=== PATIENT | male | born 1990 | race Caucasian/White ===

== ENCOUNTER 2021-09-19 18:08 | Emergency (ER) | payer SELFPAY ==
[2021-09-19 18:31] VITALS: BP 155/101; PULSE 92; RESP 16; TEMP 36.4; O2SAT 96
--- NOTE | 2021-09-19 18:49 | CRLHL7_ITS ---
For Patients: As a result of the Century Cures Act, medical imaging exams and procedure reports are released immediately into your electronic medical record. You may view this report before your referring provider. If you have questions, please contact your health care provider. INDICATION: Right flank and groin pain TECHNIQUE: CT abdomen and pelvis without contrast. COMPARISON: None FINDINGS: Lower chest: Unremarkable. Liver: Diffusely diminished attenuation, compatible with steatosis, and mildly enlarged. No focal mass. Spleen: Unremarkable. Pancreas: Unremarkable. Gallbladder and bile ducts: Unremarkable. Kidneys: Unremarkable. No kidney or ureteral stones and no hydronephrosis. Adrenal glands: Unremarkable. GI tract: Unremarkable. Appendix is normal. Vascular structures: Unremarkable. Lymph nodes: Unremarkable. Miscellaneous: Unremarkable. No free air or significant free fluid. Pelvic Organs: Unremarkable. Bones: Unremarkable for age. IMPRESSION: Diffusely diminished attenuation of the liver compatible with steatosis, otherwise, unremarkable noncontrast CT of the abdomen and pelvis. No urinary tract stones, hydronephrosis, or other cause for flank pain. Please note that all CT scans at this facility use dose modulation, iterative reconstruction, and/or weight-based dosing when appropriate to reduce radiation dose to as low as reasonably achievable. Dictated by Taran Mccoy MD @ 09/19/2021 8:08:37 PM (Electronically Signed)
--- NOTE | 2021-09-19 18:51 | ED.GENADULT ---
HPI - General Adult General Chief complaint: Groin Pain Stated complaint: PAIN IN GROIN TO RIGHT SIDE Time Seen by Provider: 09/19/21 18:28 History of Present Illness HPI narrative: This 30-year-old male comes in reporting right flank, abdominal, and groin pain that was mild about a week ago but now is much more intense today. He did have some dysuria symptoms also today. Prior to this he has been in good health. He does not report any fevers. He does have some occasional nausea but no vomiting. Related Data Previous Rx's Medication Instructions Recorded methylprednisolone 4 mg tablets in 4 mg PO DAILY #21 ea 09/19/21 a dose pack (Medrol (Thanh)) Allergies Allergy/AdvReac Type Severity Reaction Status Date / Time No Known Drug Allergies Allergy Verified 09/19/21 18:36 Review of Systems Status of ROS: Reports: 10 or more systems reviewed and unremarkable except as noted in History and below Narrative: Constitutional: No fevers, no weight gain or loss. Eyes: No discharge. No vision changes. HENT: No congestion, no sore throat, no ear pain. Cardiovascular: No chest pain, no palpitations. Respiratory: No shortness of breath, no wheezes, no cough. Gastrointestinal: No vomiting, no diarrhea. Right abdominal pain extending into the right groin. Right flank pain. Genitourinary: No dysuria, no hematuria. Musculoskeletal: Normal range of motion. Skin: No rashes, no pruritis. Neurological: No dizziness, weakness, sensory change, speech change. Endo/Heme/Allergies: No bruising or bleeding. No polydipsia. Pysch: no suicidality, no anxiety, no insomnia. All other systems reviewed and are negative. PFSH [facility] Social History Smoking Status: Never smoker Second hand tobacco smoke exposure: No How often do you have a drink containing alcohol: 4 or more times a week AUDIT-C Alcohol total score: 4 Non-prescribed substance use: denies use Exam Narrative: Exam Narrative: Constitutional: Well-developed, well-nourished, no acute distress. HEENT: Normocephalic, atraumatic. Neck: Normal range of motion. Nontender. Supple. Heart: Regular. No murmurs. Normal rate. Intact distal pulses. Lungs: Clear to auscultation. No chest discomfort. No wheezes, rhonchi, or rales. Abdomen: Normal bowel sounds. Diffuse tenderness in the right lower quadrant extending into the right groin. Right flank tenderness. No rebound tenderness. Genitalia: Deferred. Back: No midline tenderness. Normal range of motion. Extremities: Normal range of motion. No injury. Skin: Intact. No rash. Warm. No erythema or pallor. Neurologic: No altered sensation. No weakness. Alert and oriented. Psychiatric: No suicidality. No anxiety or depression. No insomnia. Nursing notes and vitals signs are reviewed. Const: Vital Signs, click to edit/add: Vital Signs - 24 hr 09/19/21 18:31 Temperature 97.6 F Pulse Rate [Pulse Oximeter] 92 Respiratory Rate 16 Blood Pressure [Ri ght Upper Arm] 155/101 H Pulse Oximetry 96 Oxygen Delivery Me thod Room Air Course Vital Signs Vital signs: Initial Vital Signs Temperature 97.6 F 09/19/21 18:31 Temperature Source Temporal Artery Scan 09/19/21 18:31 Pulse Rate 92 09/19/21 18:31 Respiratory Rate 16 09/19/21 18:31 Blood Pressure 155/101 H 09/19/21 18:31 Blood Pressure Mean 119 09/19/21 18:31 Blood Pressure Position Sitting 09/19/21 18:31 Pulse Oximetry 96 09/19/21 18:31 Oxygen Delivery Method 09/19/21 18:31 Vital Signs Temperature 97.6 F 09/19/21 18:31 Pulse Rate 92 09/19/21 18:31 Respiratory Rate 16 09/19/21 18:31 Blood Pressure 155/101 H 09/19/21 18:31 Pulse Oximetry 96 09/19/21 18:31 Oxygen Delivery Method 09/19/21 18:31 Temperature 97.6 F 09/19/21 18:31 Pulse Rate 92 09/19/21 18:31 Respiratory Rate 16 09/19/21 18:31 Blood Pressure 155/101 H 09/19/21 18:31 Pulse Oximetry 96 09/19/21 18:31 Oxygen Delivery Method 09/19/21 18:31 Medical Decision Making MDM Narrative Medical decision making narrative: This man comes in reporting pain in his right groin that radiates up into his abdomen but also down into his right leg. Pain seems to come and go. 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 A CT scan of the abdomen and pelvis was done and shows no sign of kidney stone or other abnormality to explain his pain. Urinalysis also shows no sign of infection or hematuria. More likely this patient's pain is musculoskeletal ordered related to nerve impingement. He received a prescription for some tablets of Toradol, [place], and Medrol Dosepak. He does have a follow-up appointment tomorrow with his primary physician. Lab Data Labs: Lab Results 09/19/21 Range/Units 18:50 Urine Color Yellow (Yellow) Urine Appearance Clear (Clear) Urine pH 6.5 (5.0-8.5) Ur Specific [place] 1.015 (1.000-1.030) Urine Protein Negative (Negative) Urine Glucose (UA) Negative (Negative) Urine Ketones Negative (Negative) Urine Blood Negative (Negative) Urine Nitrite Negative (Negative) Urine Bilirubin Negative (Negative) Urine Urobilinogen 0.2 (0.2-1.0) Ur Leukocyte Esterase Negative (Negative) Urine RBC 0-2 (0-2) Urine WBC 0-2 (0-5) Ur Squamous Epith Cells None (None-Few) Urine Bacteria None (None) Imaging Data CT scan - abdomen: Radiologist's impression: Diffusely diminished attenuation of the liver compatible with steatosis, otherwise, unremarkable noncontrast CT of the abdomen and pelvis. No urinary tract stones, hydronephrosis, or other cause for flank pain. Discharge Plan Discharge Clinical Impression: Right groin pain Condition: Unchanged Additional Instructions: Take medication as prescribed. Follow up with MD as scheduled or return if worsening. Prescriptions: New methylprednisolone [Medrol (Thanh)] 4 mg tablets,dose pack 4 mg PO DAILY Qty: 21 0RF Follow Up/Referrals: Provider,Not a Local [Primary Care Provider] - Stand Alone Forms: [facility] Info Instructions
[2021-09-19] MEDS: KETOROLAC 10 MG TABLET PO (19:20)
[2021-09-19 19:29] LABS: Appearance Urine Clear (Clear); Bilirubin Urine Negative (Negative); Blood Urine Negative (Negative); Color Urine Yellow (Yellow); Glucose Urine Negative (Negative); Ketones Urine Negative (Negative); Leukocyte Esterase Urine Negative (Negative); Nitrite Urine Negative (Negative); Protein Urine Negative (Negative); Specific Gravity Urine 1.015 (1.000-1.030); Urobilinogen Urine 0.2 (0.2-1.0); pH Urine 6.5 (5.0-8.5)
[2021-09-19 19:43] LABS: RBC Urine 0-2 (0-2); WBC Urine 0-2 (0-5)
[2021-09-19 21:00] VITALS: BP 155/101; PULSE 92; RESP 16; TEMP 36.4; O2SAT 96
== END 2021-09-19 21:02 | disposition home or self-care (01) ==
PROVIDERS: Emergency Provider Emergency Medicine Emergency Medical Services
DX: R10.30 Lower abdominal pain, unspecified (principal)
CPT/HCPCS: 74176; 81001; 99284; A9270

== ENCOUNTER 2022-08-22 15:36 | Inpatient (IN) | payer OTHER, SELFPAY ==
[2022-08-22] VITALS (16 sets, daily range): BP systolic 120–141; BP diastolic 78–100; PULSE 86–102; RESP 18; TEMP 36.7–37.5; O2SAT 95–97; BMI 24.1; BMI 28.3
--- NOTE | 2022-08-22 15:54 | ED.ABDPAIN ---
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 He admits that he drinks too much alcohol. Prior to this he was feeling normal. He has nausea, vomiting, and diarrhea. He states that his pain is 10/10 in severity. The pain does radiate through to his back. He reports worsening symptoms when taking anything by mouth. <Danny Crespo MD - Last Filed: 08/22/22 20:44> Related Data Home Medications: Home Medications Medication Instructions Recorded Confirmed No Known Home Medications 08/22/22 08/22/22 <Danny Crespo MD - Last Filed: 08/22/22 20:44> Allergies/Adverse Reactions: Allergies Allergy/AdvReac Type Severity Reaction Status Date / Time No Known Drug Allergies Allergy Verified 08/22/22 15:43 <Danny Crespo MD - Last Filed: 08/22/22 20:44> Review of Systems Status of ROS Reports: 10 or more systems reviewed and unremarkable except as noted in History and below <Danny Crespo MD - Last Filed: 08/22/22 20:44> Narrative Constitutional: No fevers, no weight gain or loss. Eyes: No discharge. No vision changes. HENT: No congestion, no sore throat, no ear pain. Cardiovascular: No chest pain, no palpitations. Respiratory: No shortness of breath, no wheezes, no cough. Gastrointestinal: Abdominal pain with nausea, vomiting, and diarrhea. Genitourinary: No dysuria, no hematuria. Musculoskeletal: Normal range of motion. Skin: No rashes, no pruritis. Neurological: No dizziness, weakness, sensory change, speech change. Endo/Heme/Allergies: No bruising or bleeding. No polydipsia. Pysch: no suicidality, no anxiety, no insomnia. All other systems reviewed and are negative. 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 He does not smoke. Currently drinking about 10 beers a day. History of problems with alcohol with a 6 month period of abstinence in the past. No recreational drug use. What is your current living situation?: I presently have a place to live Problems where you live: no known problems Problems where you live details: N/A In the past 12 months, utilities in danger of being shut off: no In the past 12 mos, have been you worried that your food would run out before you had money to buy more?: never true In the past 12 mos, the food you bought just didn't last and you didn't have money to buy more?: never true Highest level of school completed/degree received: high school graduate Smoking Status: Never smoker Do you use any of these nicotine containing products: None Second hand tobacco smoke exposure: No How often do you have a drink containing alcohol: 4 or more times a week Alcohol type: beer and hard liquor How many standard drinks containing alcohol do you have on a typical day: 3 or 4 How often do you have six or more drinks on one occasion: Less than monthly AUDIT-C Alcohol total score: 6 Non-prescribed substance use: denies use Caffeine: Yes How often does anyone, including family, friends and others, physically hurt you: never How often does anyone, including family, friends and others, insult or talk down to you: never How often does anyone, including family, friends and others, threaten you with harm: never How often does anyone, including family, friends and others, scream or curse at you: never service: No <Danny Crespo MD - Last Filed: 08/22/22 20:44> Exam Narrative: Exam Narrative: Constitutional: Well-developed, well-nourished, no acute distress. HEENT: Normocephalic, atraumatic. Neck: Normal range of motion. Nontender. Supple. Heart: Regular. No murmurs. Normal rate. Intact distal pulses. Lungs: Clear to auscultation. No chest discomfort. No wheezes, rhonchi, or rales. Abdomen: Diffuse tenderness more localized in the upper epigastric region. Genitalia: Deferred. Back: No midline tenderness. Normal range of motion. Extremities: Normal range of motion. No injury. Skin: Intact. No rash. Warm. No erythema or pallor. Neurologic: No altered sensation. No weakness. Alert and oriented. Psychiatric: No suicidality. No anxiety or depression. No insomnia. Nursing notes and vitals signs are reviewed. <Danny Crespo MD - Last Filed: 08/22/22 20:44> Const: Vital Signs, click to edit/add: Vital Signs - 24 hr 08/22/22 15:40 08/22/22 16:39 08/22/22 16:40 Temperature 98.1 F Pulse Rate 86 86 Pulse Rate [Right Pulse Oximeter] 93 Respiratory Rate 18 Blood Pressure 120/78 Blood Pressure [Ri ght Upper Arm] 141/100 H Pulse Oximetry 97 96 95 Oxygen Delivery Me thod Room Air 08/22/22 16:45 08/22/22 16:46 08/22/22 17:00 Temperature Pulse Rate 86 86 87 Pulse Rate [Right Pulse Oximeter] Respiratory Rate Blood Pressure 121/79 Blood Pressure [Ri ght Upper Arm] Pulse Oximetry 96 95 97 Oxygen Delivery Me thod 08/22/22 17:01 08/22/22 17:15 08/22/22 17:16 Temperature Pulse Rate 86 102 H 96 Pulse Rate [Right Pulse Oximeter] Respiratory Rate Blood Pressure 125/82 123/82 Blood Pressure [Ri ght Upper Arm] Pulse Oximetry 97 97 97 Oxygen Delivery Me thod 08/22/22 17:30 08/22/22 17:32 08/22/22 17:57 Temperature 98.9 F Pulse Rate 97 94 Pulse Rate [Right Pulse Oximeter] Respiratory Rate 18 Blood Pressure 125/86 Blood Pressure [Ri ght Upper Arm] Pulse Oximetry 97 97 Oxygen Delivery Me thod <Danny Crespo MD - Last Filed: 08/22/22 20:44> Vital Signs, click to edit/add: Vital Signs - 24 hr 08/22/22 15:40 08/22/22 16:39 08/22/22 16:40 Temperature 98.1 F Pulse Rate 86 86 Pulse Rate [Right Pulse Oximeter] 93 Respiratory Rate 18 Blood Pressure 120/78 Blood Pressure [Ri ght Upper Arm] 141/100 H Pulse Oximetry 97 96 95 Oxygen Delivery Me thod Room Air 08/22/22 16:45 08/22/22 16:46 08/22/22 17:00 Temperature Pulse Rate 86 86 87 Pulse Rate [Right Pulse Oximeter] Respiratory Rate Blood Pressure 121/79 Blood Pressure [Ri ght Upper Arm] Pulse Oximetry 96 95 97 Oxygen Delivery Me thod 08/22/22 17:01 08/22/22 17:15 08/22/22 17:16 Temperature Pulse Rate 86 102 H 96 Pulse Rate [Right Pulse Oximeter] Respiratory Rate Blood Pressure 125/82 123/82 Blood Pressure [Ri ght Upper Arm] Pulse Oximetry 97 97 97 Oxygen Delivery Me thod 08/22/22 17:30 08/22/22 17:32 08/22/22 17:57 Temperature 98.9 F Pulse Rate 97 94 Pulse Rate [Right Pulse Oximeter] Respiratory Rate 18 Blood Pressure 125/86 Blood Pressure [Ri ght Upper Arm] Pulse Oximetry 97 97 Oxygen Delivery Me thod <Fabricio Castro MD - Last Filed: 08/22/22 19:09> Course Vital Signs Vital signs: Initial Vital Signs Temperature 98.1 F 08/22/22 15:40 Temperature Source Temporal Artery Scan 08/22/22 15:40 Pulse Rate 93 08/22/22 15:40 Respiratory Rate 18 08/22/22 15:40 Blood Pressure 141/100 H 08/22/22 15:40 Blood Pressure Mean 113 H 08/22/22 15:40 Blood Pressure Position Sitting 08/22/22 15:40 Pulse Oximetry 97 08/22/22 15:40 Oxygen Delivery Method Room Air 08/22/22 15:40 Vital Signs Temperature 98.1 F 08/22/22 15:40 Pulse Rate 93 08/22/22 15:40 Respiratory Rate 18 08/22/22 15:40 Blood Pressure 141/100 H 08/22/22 15:40 Pulse Oximetry 97 08/22/22 15:40 Oxygen Delivery Method Room Air 08/22/22 15:40 Temperature 98.9 F 08/22/22 19:00 Pulse Rate 87 08/22/22 19:00 Respiratory Rate 18 08/22/22 19:00 Blood Pressure 133/87 08/22/22 19:00 Pulse Oximetry 97 08/22/22 19:00 Oxygen Delivery Method Room Air 08/22/22 19:00 <Danny Crespo MD - Last Filed: 08/22/22 20:44> Initial Vital Signs Temperature 98.1 F 08/22/22 15:40 Temperature Source Temporal Artery Scan 08/22/22 15:40 Pulse Rate 93 08/22/22 15:40 Respiratory Rate 18 08/22/22 15:40 Blood Pressure 141/100 H 08/22/22 15:40 Blood Pressure Mean 113 H 08/22/22 15:40 Blood Pressure Position Sitting 08/22/22 15:40 Pulse Oximetry 97 08/22/22 15:40 Oxygen Delivery Method Room Air 08/22/22 15:40 Vital Signs Temperature 98.1 F 08/22/22 15:40 Pulse Rate 93 08/22/22 15:40 Respiratory Rate 18 08/22/22 15:40 Blood Pressure 141/100 H 08/22/22 15:40 Pulse Oximetry 97 08/22/22 15:40 Oxygen Delivery Method Room Air 08/22/22 15:40 Temperature 98.9 F 08/22/22 19:00 Pulse Rate 87 08/22/22 19:00 Respiratory Rate 18 08/22/22 19:00 Blood Pressure 133/87 08/22/22 19:00 Pulse Oximetry 97 08/22/22 19:00 Oxygen Delivery Method Room Air 08/22/22 19:00 <Fabricio Castro MD - Last Filed: 08/22/22 19:09> MDM - Abdominal Pain Lab Data Labs: Lab Results 08/22/22 Range/Units 14:14 WBC 15.34 H (4.50-11.00) K/uL RBC 5.13 (4.30-5.90) m/uL Hgb 16.2 (13.5-17.5) gm/dL Hct 44.0 (37.0-53.0) % MCV 86 (80-100) fL MCH 32 (26-34) pg MCHC 37 H (32-36) gm/dL RDW Coeff of [place] 13.1 (11.5-15.5) % Plt Count 217 (140-440) K/uL Neut % (Auto) 88.3 H (42.0-72.0) % Lymph % (Auto) 5.7 L (20-44) % Patrick % (Auto) 5.6 (0.0-11.0) % Eos % (Auto) 0.0 (0.0-7.0) % Baso % (Auto) 0.1 (0.0-3.0) % Neut # (Auto) 13.50 H (1.7-7.0) K/uL Lymph # (Auto) 0.90 (0.90-2.90) K/uL Patrick # (Auto) 0.90 (0.00-0.90) K/UL Eos # (Auto) 0.00 (0.00-0.50) K/uL Baso # (Auto) 0.00 (0.00-0.30) K/uL Abs Immat Gran (auto) 0.00 (0.00-0.30) K/uL Imm/Tot Granulo (auto) 0.3 % Sodium 128 L (135-149) mmol/L Potassium 3.3 L (3.6-5.1) mmol/L Chloride 89 L (96-114) mmol/L Carbon Dioxide 22 (20-32) mmol/L BUN 11 (5-24) mg/dL Creatinine 0.5 (0.5-1.5) mg/dL Estimated Creat Clear 182.79 Estimated GFR 138 ml/min Glucose 125 H (60-115) mg/dL Calcium 9.0 (8.4-10.6) mg/dL Total Bilirubin 1.5 (0.1-1.5) mg/dL Direct Bilirubin 0.2 (0.0-0.5) mg/dL AST 73 H (12-35) U/L ALT 52 H (4-50) U/L Alkaline Phosphatase 87 (40-150) U/L Total Protein 8.2 (6.0-8.3) g/dL Albumin 4.5 (3.3-5.0) g/dL Lipase 920 H (23-300) U/L Ethyl Alcohol 0.13 H (0.01-0.03) % <Danny Crespo MD - Last Filed: 08/22/22 20:44> Lab Results 08/22/22 Range/Units 14:14 WBC 15.34 H (4.50-11.00) K/uL RBC 5.13 (4.30-5.90) m/uL Hgb 16.2 (13.5-17.5) gm/dL Hct 44.0 (37.0-53.0) % MCV 86 (80-100) fL MCH 32 (26-34) pg MCHC 37 H (32-36) gm/dL RDW Coeff of [place] 13.1 (11.5-15.5) % Plt Count 217 (140-440) K/uL Neut % (Auto) 88.3 H (42.0-72.0) % Lymph % (Auto) 5.7 L (20-44) % Patrick % (Auto) 5.6 (0.0-11.0) % Eos % (Auto) 0.0 (0.0-7.0) % Baso % (Auto) 0.1 (0.0-3.0) % Neut # (Auto) 13.50 H (1.7-7.0) K/uL Lymph # (Auto) 0.90 (0.90-2.90) K/uL Patrick # (Auto) 0.90 (0.00-0.90) K/UL Eos # (Auto) 0.00 (0.00-0.50) K/uL Baso # (Auto) 0.00 (0.00-0.30) K/uL Abs Immat Gran (auto) 0.00 (0.00-0.30) K/uL Imm/Tot Granulo (auto) 0.3 % Sodium 128 L (135-149) mmol/L Potassium 3.3 L (3.6-5.1) mmol/L Chloride 89 L (96-114) mmol/L Carbon Dioxide 22 (20-32) mmol/L BUN 11 (5-24) mg/dL Creatinine 0.5 (0.5-1.5) mg/dL Estimated Creat Clear 182.79 Estimated GFR 138 ml/min Glucose 125 H (60-115) mg/dL Calcium 9.0 (8.4-10.6) mg/dL Total Bilirubin 1.5 (0.1-1.5) mg/dL Direct Bilirubin 0.2 (0.0-0.5) mg/dL AST 73 H (12-35) U/L ALT 52 H (4-50) U/L Alkaline Phosphatase 87 (40-150) U/L Total Protein 8.2 (6.0-8.3) g/dL Albumin 4.5 (3.3-5.0) g/dL Lipase 920 H (23-300) U/L Ethyl Alcohol 0.13 H (0.01-0.03) % <Fabricio Castro MD - Last Filed: 08/22/22 19:09> Discharge Plan Discharge Patient Disposition: Admitted As Observation <Danny Crespo MD - Last Filed: 08/22/22 20:44>
[2022-08-22] MEDS: 0.9 % SODIUM CHLORIDE 1000 ml 1,000 ML IV (16:20)
[2022-08-22 16:21] LABS: Basophils Percent Auto 0.1 % (0.0-3.0); Hemoglobin* 16.2 gm/dL (13.5-17.5); Immature Granulocytes Pct Auto 0.3 %; Lymphocytes Percent Auto 5.7 % (20-44); Mean Corpuscular HGB Conc 37 gm/dL (32-36); Mean Corpuscular Hemoglobin 32 pg (26-34); Mean Corpuscular Volume 86 fL (80-100); Monocytes Percent Auto 5.6 % (0.0-11.0); Neutrophils Percent Auto 88.3 % (42.0-72.0); Platelet Count* 217 K/uL (140-440); RDW Coefficient of Variation % 13.1 % (11.5-15.5); Red Blood Count 5.13 m/uL (4.30-5.90); White Blood Count* 15.34 K/uL (4.50-11.00)
[2022-08-22] MEDS: HYDROmorphone 0.5 mg/0.5 ml inj IVP (16:22)
[2022-08-22] MEDS: ONDANSETRON 2 MG/ML inj 4 MG IVP (16:22)
[2022-08-22 16:23] LABS: Slide Review Reflex No
--- NOTE | 2022-08-22 16:30 | ED.NURSE ---
upon palpition of pt abdomen he told the that he feels something moving. Whenever he moves, his stomach is tender feels something moving internally.
[2022-08-22 16:34] LABS: Albumin* 4.5 g/dL (3.3-5.0); Chloride* 89 mmol/L (96-114); Sodium* 128 mmol/L (135-149)
[2022-08-22 16:35] LABS: Potassium* 3.3 mmol/L (3.6-5.1)
[2022-08-22 16:37] LABS: Alkaline Phosphatase* 87 U/L (40-150); Aspartate Amino Transferase* 73 U/L (12-35); Bilirubin Direct* 0.2 mg/dL (0.0-0.5); Bilirubin Total* 1.5 mg/dL (0.1-1.5); Blood Urea Nitrogen* 11 mg/dL (5-24); Carbon Dioxide* 22 mmol/L (20-32); Creatinine* 0.5 mg/dL (0.5-1.5); Est. Creatinine Clearance* 182.79; Estimated Glomerular Filt Rate 138 ml/min; Glucose* 125 mg/dL (60-115); Total Protein* 8.2 g/dL (6.0-8.3)
[2022-08-22 16:38] LABS: Alanine Aminotransferase* 52 U/L (4-50); Ethanol* 0.13 % (0.01-0.03); Lipase* 920 U/L (23-300)
--- NOTE | 2022-08-22 16:57 | CRLHL7_ITS ---
For Patients: As a result of the Century Cures Act, medical imaging exams and procedure reports are released immediately into your electronic medical record. You may view this report before your referring provider. If you have questions, please contact your health care provider. CLINICAL HISTORY: Abdominal pain question pancreatitis FINDINGS: Increased echogenicity of the liver. There is a normal appearance of the hepatic IVC and proximal abdominal aorta. There is no evidence of ascites. The gallbladder is of normal size and there is no evidence of intraluminal stones or sludge. The gallbladder wall measures 2 mm in thickness. The common bile duct is of normal size and measures 5 mm in diameter at the level of the lauri hepatis. The visualized portions of the pancreas appears unremarkable. No definite large peripancreatic fluid collections are seen. There is no evidence of a stone or hydronephrosis within the right kidney. The right kidney measures 11.8 cm in length. IMPRESSION: 1. Fatty liver. 2. Visualized portions of the pancreas appears grossly unremarkable. No large peripancreatic fluid collection. Pancreas suboptimally visualized. Dictated by Bernie Aguilar MD @ 08/22/2022 6:43:57 PM (Electronically Signed)
--- NOTE | 2022-08-22 19:10 | P.IMHP_ITS ---
Hospitalist- H&P: HPI History of Present Illness Date Seen: 08/22/22 Chief complaint: Abdominal pain Narrative: Jorge Ramos is a 31 year old male admitted through the emergency department with severe mid abdominal pain since last night. Patient reports that he was doing well until last night when he had onset of severe mid epigastric abdominal pain. He has had no fever. He has had recurrent vomiting which occurs every time he eats. Emesis is nonbloody with a yellow color bitter taste. He has had some nonbloody nonmelanotic diarrhea. He reports no previous episodes of similar symptoms. No previous abdominal surgeries. No previous gastrointestinal or genitourinary problems. Patient reports drinking about 10 beers a day. He acknowledges a problem with drinking too much. He did have a period of 6 months of abstinence but has been heavily drinking since that ended. He tells me today he is pledge Ng for 5 years of abstinence now. He is Liberian-speaking. Communication is through a on line Liberian speech and language assistant Review of Systems Narrative: Prior to the onset of symptoms last night he was feeling well. He has no other health concerns, no past medical history. No previous surgeries. PFSH [facility] Medical History Alcohol induced fatty liver ?K70.0 - Alcoholic fatty liver (ICD-10) Alcohol abuse ?F10.10 - Alcohol abuse, uncomplicated (ICD-10) Social History (Updated 08/22/22 @ 19:15 by Fabricio Castro MD) Narrative: He lives in [place] with his and 4 daughters. 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 He does not smoke. Currently drinking about 10 beers a day. History of problems with alcohol with a 6 month period of abstinence in the past. No recreational drug use. Smoking Status: Never smoker Second hand tobacco smoke exposure: No How often do you have a drink containing alcohol: 4 or more times a week How many standard drinks containing alcohol do you have on a typical day: 10 or more How often do you have six or more drinks on one occasion: Daily or almost daily AUDIT-C Alcohol total score: 12 Non-prescribed substance use: denies use service: No Meds Home Medications and Allergies Home Medications Medication Instructions Recorded Confirmed Type No Known Home Medications 08/22/22 08/22/22 History Allergies Allergy/AdvReac Type Severity Reaction Status Date / Time No Known Drug Allergies Allergy Verified 08/22/22 15:43 Exam Narrative: Exam Narrative: He is alert and appears in mild distress, indicating abdominal pain with his hands. Eyes normal. Sclerae nonicteric. Oropharynx is normal. Neck is supple without mass or adenopathy. Respirations are clear to auscultation. Cardiovascular: S1, S2, regular rate and rhythm. No murmur gallop or rub. Abdomen: Bowel sounds are present. Abdomen is soft with moderate epigastric tenderness and mild diffuse tenderness. External genitalia normal. Extremities are normal with good perfusion. No edema. No rash.. Const: Vital Signs, click to edit/add: Vital Signs - 24 hr 08/22/22 15:40 08/22/22 16:39 08/22/22 16:40 Temperature 98.1 F Pulse Rate 86 86 Pulse Rate [Right Pulse Oximeter] 93 Respiratory Rate 18 Blood Pressure 120/78 Blood Pressure [Ri ght Upper Arm] 141/100 H Pulse Oximetry 97 96 95 Oxygen Delivery Me thod Room Air 08/22/22 16:45 08/22/22 16:46 08/22/22 17:00 Temperature Pulse Rate 86 86 87 Pulse Rate [Right Pulse Oximeter] Respiratory Rate Blood Pressure 121/79 Blood Pressure [Ri ght Upper Arm] Pulse Oximetry 96 95 97 Oxygen Delivery Me thod 08/22/22 17:01 08/22/22 17:15 08/22/22 17:16 Temperature Pulse Rate 86 102 H 96 Pulse Rate [Right Pulse Oximeter] Respiratory Rate Blood Pressure 125/82 123/82 Blood Pressure [Ri ght Upper Arm] Pulse Oximetry 97 97 97 Oxygen Delivery Me thod 08/22/22 17:30 08/22/22 17:32 08/22/22 17:57 Temperature 98.9 F Pulse Rate 97 94 Pulse Rate [Right Pulse Oximeter] Respiratory Rate 18 Blood Pressure 125/86 Blood Pressure [Ri ght Upper Arm] Pulse Oximetry 97 97 Oxygen Delivery Me thod Documenting provider has reviewed patient's vital signs: yes Hospitalist - H&P: Result Labs Labs: Short CBC 08/22/22 Range/Units 14:14 WBC 15.34 H (4.50-11.00) K/uL Hgb 16.2 (13.5-17.5) gm/dL Hct 44.0 (37.0-53.0) % Plt Count 217 (140-440) K/uL BMP 08/22/22 14:14 Sodium 128 L Potassium 3.3 L Chloride 89 L Carbon Dioxide 22 BUN 11 Creatinine 0.5 Glucose 125 H Calcium 9.0 Liver Function 08/22/22 Range/Units 14:14 Total Bilirubin 1.5 (0.1-1.5) mg/dL Direct Bilirubin 0.2 (0.0-0.5) mg/dL AST 73 H (12-35) U/L ALT 52 H (4-50) U/L Alkaline Phosphatase 87 (40-150) U/L Albumin 4.5 (3.3-5.0) g/dL Imaging US - abdomen: Radiologist's impression: CLINICAL HISTORY: Abdominal pain question pancreatitis FINDINGS: Increased echogenicity of the liver. There is a normal appearance of the hepatic IVC and proximal abdominal aorta. There is no evidence of ascites. The gallbladder is of normal size and there is no evidence of intraluminal stones or sludge. The gallbladder wall measures 2 mm in thickness. The common bile duct is of normal size and measures 5 mm in diameter at the level of the lauri hepatis. The visualized portions of the pancreas appears unremarkable. No definite large peripancreatic fluid collections are seen. There is no evidence of a stone or hydronephrosis within the right kidney. The right kidney measures 11.8 cm in length. IMPRESSION: 1. Fatty liver. 2. Visualized portions of the pancreas appears grossly unremarkable. No large peripancreatic fluid collection. Pancreas suboptimally visualized. Assessment and Plan Assessment and plan (1) Pancreatitis, alcoholic, acute: Status: Acute (2) Alcohol induced fatty liver: Status: Acute (3) Alcohol abuse: Status: Acute (4) Hyponatremia: Status: Acute (5) Hypokalemia: Status: Acute Plan Patient is admitted for management of acute pancreatitis as well as complicatio ns including electrolyte abnormalities. Initiate IV fluids. Pain control. Advance diet as tolerated. Pain medication. Correct electrolytes. Monitor for alcohol withdrawal. Total time spent is 60 minutes, 40 minutes in coordination of care and discussing with patient and other providers ongoing management of pancreatitis and importance of abstinence from alcohol.
[2022-08-22] MEDS: MORPHINE 4 MG/ML INJ 2 MG IVP ×3 (19:33→22:14)
[2022-08-22] MEDS: 0.9 % SODIUM CH + KCL 20 mEq/L 1,000 ML 125 ML IV (19:34)
[2022-08-22] MEDS: PHENobarbitaL 32.4 MG TABLET 129.6 MG PO (22:14)
[2022-08-22] MEDS: THIAMINE 100 MG TABLET PO (22:14)
[2022-08-22] MEDS: SODIUM CHLORIDE 0.9 % (FLUSH) 10 ML SYRINGE 5 ML IVF (22:15)
[2022-08-23] VITALS (7 sets, daily range): BP systolic 127–141; BP diastolic 83–89; PULSE 80–95; RESP 14–20; TEMP 36.8–37.2; O2SAT 96–99
[2022-08-23] MEDS: 0.9 % SODIUM CH + KCL 20 mEq/L 1,000 ML 125 ML IV ×3 (03:05→17:20)
[2022-08-23] MEDS: MORPHINE 4 MG/ML INJ 2 MG IVP (03:05)
--- NOTE | 2022-08-23 06:23 | PC.NURSE ---
Shift note: Pt came to the floor with the history of abdominal pain and confirmed of habitual drinking. Rated pain level at 8. Alert and oriented. Pt cannot speak Slovenian and therefore requires an sportspersons. Morphine was given 2x per request. Pain level this morning was 4. No n/v, headache, hallucination, perspiration, or seizures observed. Vital signs recorded within normal limit. Continue to be on clear liquid diet. Ambulate independently to and from BR. Pt was given jello when complained of starving. Pt is feeling better this morning.
[2022-08-23 06:40] LABS: Basophils Absolute Auto 0.01 K/uL (0.00-0.30); Basophils Percent Auto 0.1 % (0.0-3.0); Eosinophils Absolute Auto 0.02 K/uL (0.00-0.50); Eosinophils Percent Auto 0.2 % (0.0-7.0); Hematocrit 39.1 % (37.0-53.0); Hemoglobin* 13.8 gm/dL (13.5-17.5); Immature Granulocytes Abs Auto 0.03 K/uL (0.00-0.30); Immature Granulocytes Pct Auto 0.3 %; Lymphocytes Percent Auto 10.9 % (20-44); Mean Corpuscular HGB Conc 35 gm/dL (32-36); Mean Corpuscular Hemoglobin 32 pg (26-34); Mean Corpuscular Volume 90 fL (80-100); Monocytes Percent Auto 6.2 % (0.0-11.0); Neutrophils Percent Auto 82.3 % (42.0-72.0); Platelet Count* 139 K/uL (140-440); RDW Coefficient of Variation % 13.2 % (11.5-15.5); Red Blood Count 4.37 m/uL (4.30-5.90); White Blood Count* 9.26 K/uL (4.50-11.00)
[2022-08-23 06:48] LABS: Slide Review Reflex No
[2022-08-23 07:01] LABS: Albumin* 3.4 g/dL (3.3-5.0)
[2022-08-23 07:02] LABS: Chloride* 98 mmol/L (96-114); Potassium* 3.8 mmol/L (3.6-5.1); Sodium* 131 mmol/L (135-149)
[2022-08-23 07:04] LABS: Bilirubin Direct* 0.1 mg/dL (0.0-0.5); Bilirubin Total* 2.2 mg/dL (0.1-1.5); Carbon Dioxide* 26 mmol/L (20-32); Creatinine* 0.6 mg/dL (0.5-1.5); Est. Creatinine Clearance* 129.54; Estimated Glomerular Filt Rate 131 ml/min; Total Protein* 6.7 g/dL (6.0-8.3)
[2022-08-23 07:05] LABS: Alanine Aminotransferase* 36 U/L (4-50); Alkaline Phosphatase* 71 U/L (40-150); Aspartate Amino Transferase* 43 U/L (12-35); Blood Urea Nitrogen* 7 mg/dL (5-24); Calcium* 8.4 mg/dL (8.4-10.6); Glucose* 98 mg/dL (60-115); Lipase* 509 U/L (23-300)
[2022-08-23] MEDS: SODIUM CHLORIDE 0.9 % (FLUSH) 10 ML SYRINGE 5 ML IVF ×2 (07:50→15:06)
[2022-08-23] MEDS: MORPHINE 2 MG/ML inj IVP ×2 (07:50→15:05)
[2022-08-23] MEDS: MULTIVITAMIN/MINERALS 1 TABLET 1 TAB PO (09:31)
--- NOTE | 2022-08-23 13:33 | P.IMPN_ITS ---
Progress Note: A&P Assessment and plan (1) Pancreatitis, alcoholic, acute: Problem details: - symptomatically improving - tolerated clear liquids, will advance to full liquids this afternoon - reviewed importance of complete ETOH cessation, patient verbalizes understanding Status: Acute (2) Alcohol induced fatty liver: Status: Acute (3) Alcohol abuse: Status: Acute (4) Hyponatremia: Problem details: - improved Status: Acute (5) Hypokalemia: Problem details: - resolved Status: Acute Plan - per above - SCDs for ppx - if continuing to advance diet well and continues to clinically improve, likely home tomorrow Subjective Date Seen: 08/23/22 Interval history: Jorge is feeling a little better today. He continues to have intermittent epigastric pain, not yet ready to advance diet. No nausea. No vomiting. He has no other concerns for the hospitalist team. Exam Narrative: Exam Narrative: GEN: Alert and oriented, laying comfortably in bed and nontoxic HEENT: EOMIs bilaterally, no scleral icterus CV: RRR, No concerning murmurs R: LCTA bilaterally without concerning wheezing, air movement adequate Ab: Soft, mild tenderness to palpation, normal bowel sounds throughout Ext: wwp, no concerning edema Skin: No concerning skin lesions or rashes on exposed skin Neuro: Nonfocal Psych: Appropriate Const: Vital Signs, click to edit/add: Vital Signs - 24 hr 08/22/22 15:40 08/22/22 16:39 08/22/22 16:40 Temperature 98.1 F Pulse Rate 86 86 Pulse Rate [Pulse Oximeter] Pulse Rate [Right Pulse Oximeter] 93 Respiratory Rate 18 Blood Pressure 120/78 Blood Pressure [Ri ght Arm] Blood Pressure [Ri ght Upper Arm] 141/100 H Pulse Oximetry 97 96 95 Oxygen Delivery Me thod Room Air 08/22/22 16:45 08/22/22 16:46 08/22/22 17:00 Temperature Pulse Rate 86 86 87 Pulse Rate [Pulse Oximeter] Pulse Rate [Right Pulse Oximeter] Respiratory Rate Blood Pressure 121/79 Blood Pressure [Ri ght Arm] Blood Pressure [Ri ght Upper Arm] Pulse Oximetry 96 95 97 Oxygen Delivery Me thod 08/22/22 17:01 08/22/22 17:15 08/22/22 17:16 Temperature Pulse Rate 86 102 H 96 Pulse Rate [Pulse Oximeter] Pulse Rate [Right Pulse Oximeter] Respiratory Rate Blood Pressure 125/82 123/82 Blood Pressure [Ri ght Arm] Blood Pressure [Ri ght Upper Arm] Pulse Oximetry 97 97 97 Oxygen Delivery Me thod 08/22/22 17:30 08/22/22 17:32 08/22/22 17:57 Temperature 98.9 F Pulse Rate 97 94 Pulse Rate [Pulse Oximeter] Pulse Rate [Right Pulse Oximeter] Respiratory Rate 18 Blood Pressure 125/86 Blood Pressure [Ri ght Arm] Blood Pressure [Ri ght Upper Arm] Pulse Oximetry 97 97 Oxygen Delivery Me thod 08/22/22 19:00 08/22/22 20:40 08/22/22 20:52 Temperature 98.9 F 99.5 F 99.5 F Pulse Rate Pulse Rate [Pulse Oximeter] 87 94 94 Pulse Rate [Right Pulse Oximeter] Respiratory Rate 18 18 18 Blood Pressure Blood Pressure [Ri ght Arm] 133/87 127/79 127/79 Blood Pressure [Ri ght Upper Arm] Pulse Oximetry 97 97 97 Oxygen Delivery Ok thod Room Air Room Air Room Air 08/22/22 23:00 08/23/22 03:00 08/23/22 07:38 Temperature 98.6 F 98.6 F 98.6 F Pulse Rate Pulse Rate [Pulse Oximeter] 89 86 95 Pulse Rate [Right Pulse Oximeter] Respiratory Rate 18 18 14 Blood Pressure Blood Pressure [Ri ght Arm] 129/84 141/89 H 128/86 Blood Pressure [Ri ght Upper Arm] Pulse Oximetry 97 99 97 [facility] Room [facility] Room Air 08/23/22 07:38 08/23/22 11:29 08/23/22 11:32 Temperature 98.6 F 98.3 F 98.3 F Pulse Rate Pulse Rate [Pulse Oximeter] 95 86 86 Pulse Rate [Right Pulse Oximeter] Respiratory Rate 14 20 20 Blood Pressure Blood Pressure [Ri ght Arm] 128/86 127/83 127/83 Blood Pressure [Ri ght Upper Arm] Pulse Oximetry 97 96 96 Oxygen Delivery Me thod Room Air Room Air Room Air Labs Labs: Laboratory Results - last 24 hr 08/22/22 08/23/22 14:14 05:50 WBC 15.34 H 9.26 RBC 5.13 4.37 Hgb 16.2 13.8 Hct 44.0 39.1 MCV 86 90 MCH 32 32 MCHC 37 H 35 RDW Coeff of Ok 13.1 13.2 Plt Count 217 139 L Neut % (Auto) 88.3 H 82.3 H Lymph % (Auto) 5.7 L 10.9 L Harper % (Auto) 5.6 6.2 Eos % (Auto) 0.0 0.2 Baso % (Auto) 0.1 0.1 Neut # (Auto) 13.50 H 7.60 H Lymph # (Auto) 0.90 1.00 Harper # (Auto) 0.90 0.60 Eos # (Auto) 0.00 0.02 Baso # (Auto) 0.00 0.01 Abs Immat Gran (auto) 0.00 0.03 Imm/Tot Granulo (auto) 0.3 0.3 Sodium 128 L 131 L Potassium 3.3 L 3.8 Chloride 89 L 98 Carbon Dioxide 22 26 BUN 11 7 Creatinine 0.5 0.6 Estimated Creat Clear 182.79 129.54 Estimated GFR 138 131 Glucose 125 H 98 Calcium 9.0 8.4 Total Bilirubin 1.5 2.2 H Direct Bilirubin 0.2 0.1 AST 73 H 43 H ALT 52 H 36 Alkaline Phosphatase 87 71 Total Protein 8.2 6.7 Albumin 4.5 3.4 Lipase 920 H 509 H Ethyl Alcohol 0.13 H
--- NOTE | 2022-08-23 17:27 | PC.NURSE ---
Pt alert and oriented. Pt rated pain a 5 throughout whole shift. Pain medications given at Pt request for the pain; See EMAR for intervention. Pt describes pain as a soreness after working out at the gym. Still rated at a 5.?VSS. Plastic Press Operator services used. Pt IND in room. Pt on a clear liquid diet. Tolerating well and upgraded to full liquid diet. Pt tolerating full liquid diet. Pt has been passing gas. CWAW score of 0 during assessments on shift.?
[2022-08-23] MEDS: THIAMINE 100 MG TABLET PO (22:18)
[2022-08-24] MEDS: 0.9 % SODIUM CH + KCL 20 mEq/L 1,000 ML 125 ML IV ×2 (00:32→09:02)
[2022-08-24] MEDS: LORazepam 1 MG TABLET PO (01:56)
[2022-08-24 02:50] VITALS: BP 128/76; PULSE 76; RESP 16; TEMP 37.4; O2SAT 97
[2022-08-24 07:00] VITALS: BP 128/86; PULSE 81; RESP 16; TEMP 36.9; O2SAT 97
[2022-08-24 07:16] LABS: Basophils Absolute Auto 0.02 K/uL (0.00-0.30); Basophils Percent Auto 0.3 % (0.0-3.0); Eosinophils Absolute Auto 0.05 K/uL (0.00-0.50); Eosinophils Percent Auto 0.7 % (0.0-7.0); Hematocrit 39.2 % (37.0-53.0); Hemoglobin* 13.8 gm/dL (13.5-17.5); Immature Granulocytes Abs Auto 0.02 K/uL (0.00-0.30); Immature Granulocytes Pct Auto 0.3 %; Lymphocytes Percent Auto 22.2 % (20-44); Mean Corpuscular HGB Conc 35 gm/dL (32-36); Mean Corpuscular Hemoglobin 32 pg (26-34); Mean Corpuscular Volume 91 fL (80-100); Monocytes Percent Auto 7.8 % (0.0-11.0); Neutrophils Absolute Auto 4.65 K/uL (1.7-7.0); Neutrophils Percent Auto 68.7 % (42.0-72.0); Platelet Count* 151 K/uL (140-440); RDW Coefficient of Variation % 13.5 % (11.5-15.5); Red Blood Count 4.31 m/uL (4.30-5.90); White Blood Count* 6.77 K/uL (4.50-11.00)
--- NOTE | 2022-08-24 07:19 | PC.NURSE ---
Pt alert and oriented x3. Afebrile. Pt reports 4/10 pain in abdomen, pain medications offered pt declined. Ipad firer kiln was used with every interaction with pt.?Pt CIWA?s scores were 0-2. Pt reported ?It feels like my limbs jerk, and it is difficult to sleep?. Charge nurse called and updated Urban around 0030, Urban called back around 10 mins later with a one time dose?PO Lorazepam, pt was able to sleep. Pt denies chest pain, SOB, and N/V. Pt is up ad carlos in room. Pt is tolerating a full liquid diet, voiding.
[2022-08-24 07:22] LABS: Slide Review Reflex No
[2022-08-24 07:40] LABS: Albumin* 3.7 g/dL (3.3-5.0); Chloride* 102 mmol/L (96-114); Potassium* 4.1 mmol/L (3.6-5.1); Sodium* 136 mmol/L (135-149)
[2022-08-24 07:42] LABS: Creatinine* 0.6 mg/dL (0.5-1.5); Est. Creatinine Clearance* 129.54; Estimated Glomerular Filt Rate 131 ml/min
[2022-08-24 07:43] LABS: Alanine Aminotransferase* 30 U/L (4-50); Alkaline Phosphatase* 80 U/L (40-150); Aspartate Amino Transferase* 33 U/L (12-35); Bilirubin Direct* 0.2 mg/dL (0.0-0.5); Bilirubin Total* 1.5 mg/dL (0.1-1.5); Blood Urea Nitrogen* 3 mg/dL (5-24); Carbon Dioxide* 26 mmol/L (20-32); Glucose* 93 mg/dL (60-115); Total Protein* 7.2 g/dL (6.0-8.3)
[2022-08-24 07:44] LABS: Calcium* 8.9 mg/dL (8.4-10.6)
[2022-08-24] MEDS: MULTIVITAMIN/MINERALS 1 TABLET 1 TAB PO (09:01)
--- NOTE | 2022-08-24 10:07 | PM.DS1 ---
DS: Providers Provider Date Seen: 08/24/22 Date of admission: 08/22/22 18:54 Primary care physician: Not a Local Provider Admitting Clinician: Fabricio Castro MD Attending Physician on discharge: Diane Castillo MD Date of Discharge: 08/24/22 DS: Diagnosis Discharge Diagnosis (1) Pancreatitis, alcoholic, acute: Status: Acute Problem details: - reviewed importance of complete ETOH cessation upon discharge, patient verbalizes understanding (2) Alcohol induced fatty liver: Status: Acute (3) Alcohol abuse: Status: Acute (4) Hyponatremia: Status: Acute Problem details: - resolved during stay (5) Hypokalemia: Status: Acute Problem details: - resolved during stay DS: Summary Hospital Course Hospital Course: Jorge is a 31-year-old male with a history of alcohol abuse who presented the hospital with acute pancreatitis. Admission imaging revealed fatty liver disease, labs exhibited elevated lipase, AST, and bilirubin, as well as hypokalemia and hyponatremia. These all resolved during stay. He also subjectively improved and was able to advance diet without pain or nausea on hospital day 2, requesting discharge home. He has no other known comorbidities, lives with and children locally. We discussed the importance of ETOH cessation upon discharge, in addition to establishing a PCP locally. Patient verbalized understanding. Status at Discharge Functional status at discharge: independent ambulation Overall status at discharge: patient is progressing back to baseline Time Spent with Patient Time attestation: Total time spent providing and/or coordinating discharge services: Time spent: Less than 30 minutes Exam Narrative: Exam Narrative: GEN: Alert and oriented, nontoxic HEENT: EOMIs bilaterally, no scleral icterus CV: RRR, No concerning murmurs, rubs, or gallops R: LCTA bilaterally Ab: soft, nondistended, no ttp Ext: wwp, no concerning edema Skin: No concerning skin lesions or rashes on exposed skin Neuro: Nonfocal Psych: Appropriate Const: Vital Signs, click to edit/add: Vital Signs - 24 hr 08/23/22 11:29 08/23/22 11:32 08/23/22 14:45 Temperature 98.3 F 98.3 F 98.4 F Pulse Rate [Pulse Oximeter] 86 86 94 Respiratory Rate 20 20 18 Blood Pressure [Ri ght Arm] 127/83 127/83 134/87 Pulse Oximetry 96 96 97 Oxygen Delivery Me thod Room Air Room Air 08/23/22 14:45 08/23/22 19:35 08/23/22 22:30 Temperature 98.4 F 99.0 F 98.5 F Pulse Rate [Pulse Oximeter] 94 86 80 Respiratory Rate 18 18 16 Blood Pressure [Ri ght Arm] 134/87 128/84 130/86 Pulse Oximetry 97 98 97 Oxygen Delivery Me thod Room Air Room Air Room Air 08/23/22 22:30 08/24/22 02:50 08/24/22 07:00 Temperature 99.3 F 98.4 F Pulse Rate [Pulse Oximeter] 86 76 81 Respiratory Rate 16 16 16 Blood Pressure [Ri ght Arm] 128/76 128/86 Pulse Oximetry 97 97 Oxygen Delivery Me thod Room Air Room Air 08/24/22 07:00 Temperature Pulse Rate [Pulse Oximeter] 81 Respiratory Rate 16 Blood Pressure [Ri ght Arm] Pulse Oximetry Oxygen Delivery Me thod DS: Data Data Completed and Pending Labs on day of discharge: Labs from last 24 hours 08/24/22 06:09 WBC 6.77 RBC 4.31 Hgb 13.8 Hct 39.2 MCV 91 MCH 32 MCHC 35 RDW Coeff of Ok 13.5 Plt Count 151 Neut % (Auto) 68.7 Lymph % (Auto) 22.2 [place] % (Auto) 7.8 Eos % (Auto) 0.7 Baso % (Auto) 0.3 Neut # (Auto) 4.65 Lymph # (Auto) 1.50 [place] # (Auto) 0.50 Eos # (Auto) 0.05 Baso # (Auto) 0.02 Abs Immat Gran (auto) 0.02 Imm/Tot Granulo (auto) 0.3 Sodium 136 Potassium 4.1 Chloride 102 Carbon Dioxide 26 BUN 3 L Creatinine 0.6 Estimated Creat Clear 129.54 Estimated GFR 131 Glucose 93 Calcium 8.9 Total Bilirubin 1.5 Direct Bilirubin 0.2 AST 33 ALT 30 Alkaline Phosphatase 80 Total Protein 7.2 Albumin 3.7 Discharge Plan Discharge Disposition: Home, Self-Care Date of Admission: 08/22/22 18:54 Attending Provider on Discharge: Diane Castillo Primary Care Provider: Provider,Not a Local Condition: Improved Anticipated Discharge Date/Time: 08/24/22 10:03 Discharge Medications: No Action No Known Home Medications Discharge Orders: Discharge Order (Routine); Ordered 08/24/22 Ordered By: Diane Castillo Patient Education: Pancreatitis (DC), Abuse of Alcohol (DC) Additional Instructions: Your pancreas was very inflamed from alcohol use. We recommend NO MORE ALCOHOL to prevent this from happening again. You also have fatty liver disease, and it is important to see a Primary Care Provider regularly to check on this. [facility] is a great clinic for followup, their phone number is [phone] Hassan p?ncreas estaba muy inflamado por el consumo de alcohol. Recomendamos NO M?S ALCOHOL para evitar que esto vuelva a suceder. Tambi?n tiene enfermedad del h?gado graso, y es importante michele a un proveedor de atenci?n primaria regularmente para verificar esto. [facility] es natanael gran cl?tor para el seguimiento, hassan n?yonatan de tel?fono es [phone] Activity Level: Activity as Tolerated Diet Detail: Melchor advance as tolerated Follow Up Appointments: Provider,Not a Local [Primary Care Provider] - Forms: [employer] Info Instructions
--- NOTE | 2022-08-24 11:10 | PC.NURSE ---
Nursing Care Hours: [id number] Pt this shift calm and cooperative, alert and oriented. No c/o pain, tenderness after regular meal. No N/V. BM x1 per pt report. IV patent. VSS. LS clear. DC instructions provided with communications maintainer. Discussed finding social support to help quit drinking. Pt states he made a promise to his scientology that he would have no more alcohol but fell. Said he will remake that promise to not drink for five years. Also discussed using non alcoholic beer in social settings if the temptation is too high and that working with a primary care provider to discuss medication treatment for cravings if they arise. Discussed starting with bland small meals throughout the day and slowly increase diet as tolerated. IV removed, VSS, pt ambulated out to SO vehicle.
[2022-08-24 11:16] VITALS: BP 123/84; PULSE 94; TEMP 37
== END 2022-08-24 10:50 | disposition home or self-care (01) | DRG 439 ==
LOC: ED 16:16 → MEDSURG 18:55
PROVIDERS: Family Medicine; Admitting Provider Family Medicine; Emergency Provider Emergency Medicine Emergency Medical Services; Visit Provider Family Medicine
DX: K85.20 Alcohol induced acute pancreatitis without necrosis or infection (principal); E87.1 Hypo-osmolality and hyponatremia; K70.0 Alcoholic fatty liver; E87.6 Hypokalemia; F10.10 Alcohol abuse, uncomplicated
CPT/HCPCS: 36415; 76705; 80048; 80076; 82077; 83690; 85025; 99284; T1013; A9153; A9270; J1170; J2270; J2405; J7030

== ENCOUNTER 2025-01-29 21:44 | Emergency (ER) | payer OTHER, SELFPAY ==
--- OUTSIDE RECORDS SUMMARY | 2025-01-29 21:46 | XMS_ITS | Clinical Summary ---
Author Organization [facility] Address [address] [place] [id number] Care Team Providers Care Oil Boiler Name Role Phone Pcp, No Primary Care Provider Unavailabl e Allergies No known active allergies Medications No known medications Active Problems No known active problems Social History Tobacco UseTypesPacks/DayYears UsedDateSmoking Tobacco: NeverSmokeless Tobacco: Never Tobacco Cessation:Counseling Given: Yes Alcohol UseStandard Drinks/WeekCommentsNo0 (1 standard drink = 0.6 oz pure alcohol)Sex and Gender InformationValueDate RecordedSex Assigned at BirthNot on fileLegal ZweIhuy5002/24/2012 7:43 AM CSTGender IdentityNot on fileSexual OrientationNot on file Last Filed Vital Signs Vital SignReadingTime TakenCommentsBlood Fdesxunz605/7305/10/2016 4:19 PM CDT Szxhm082405/10/2016 4:19 PM WZDKaortdghjvp88.9 ??C (98.5 ??F)05/10/2016 4:19 PM CDTRespiratory Rate--Oxygen Kngbhrmuma78%05/10/2016 4:19 PM CDTInhaled Oxygen Concentration--Wqcurg52.1 kg (139 lb 1.6 oz)05/10/2016 4:19 PM CDNVllkcn829 cm (5' 6.14)05/10/2016 4:19 PM CDTBody Mass Index22.36005/10/2016 4:19 PM CDT Plan of Treatment Health MaintenanceDue DateLast DoneCommentsTetanus qmpgkak8712/03/1999Depression screening for age 12+2000HIV for age 15-6512/03/2003Hepatitis C screening for age 18-7912/02/2006Hepatitis B series for 19+ (1 of 3 - 19+ 3-dose series) 12/03/2007HPV series for age 9-45 (1 - 3-dose SCDM series)12/03/2015BMI (ht and wt on same day) for age 18+Lipids for age 35-441 COVID-19 vaccine series (1 - 2024- season)2024Influenza Vaccine (#1) 2024Pneumococcal series for age 6-49Aged OutNo longer eligible based on patient's age to complete this topic Insurance Care Teams Team MemberRelationshipSpecialtyStart DateEnd Date Pcp, No PCP - General11/08/13
[2025-01-29 22:18] VITALS: BP 154/117; PULSE 113; RESP 18; TEMP 36.4; O2SAT 98
[2025-01-30 00:29] LABS: Hematocrit* 51.3 % (37.0-53.0); Hemoglobin* 18.9 gm/dL (13.5-17.5); Immature Granulocytes Abs Auto 0.03 K/uL (0.00-0.30); Immature Granulocytes Pct Auto 0.3 %; Mean Corpuscular HGB Conc 37 gm/dL (32-36); Mean Corpuscular Hemoglobin 33 pg (26-34); Mean Corpuscular Volume 91 fL (80-100); RDW Coefficient of Variation % 11.6 % (11.5-15.5); Red Blood Count* 5.67 m/uL (4.30-5.90); White Blood Count* 10.80 K/uL (4.50-11.00)
[2025-01-30 00:31] LABS: Lactate* 0.8 mmol/L (0.5-1.9)
[2025-01-30 00:36] LABS: Lymphocytes Absolute Auto 1.80 K/uL (0.90-2.90); Slide Review Reflex No
--- NOTE | 2025-01-30 00:36 | ED_ITS ---
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 34-year-old male with heavy alcohol use every weekend and prior history of pancreatitis 3 years ago presents to the emergency department with vomiting for the past 5 hours, persistent, unable to hold down any food. Heavy beer drinking last night. No fever, no trauma or injury. No hematemesis or bloody stools. Does note some mild periumbilical area pain, does not radiate to the back. No dysuria, no chest or respiratory symptoms. Did not try any interventions prior to coming to ED. he is hoping this is not pancreatitis again. He has been attempting to drink some Pedialyte but cannot hold this down. No prior abdominal surgeries. No right upper quadrant pain. Past medical history notable for alcohol abuse and prior diagnosis of alcohol- induced fatty liver. No history of DTs. No long-term medications, no allergies. ROS is notable for the GI symptoms as above only, otherwise denies times 12 systems. Related Data Previous Rx's ?Medication ?Instructions ?Recorded ondansetron 4 mg disintegrating 4 mg PO Q6H PRN nausea and 01/30/25 tablet vomiting #10 tabs Allergies Allergy/AdvReac Type Severity Reaction Status Date / Time No Known Drug Allergies Allergy Verified 01/29/25 22:35 PFSH PFSH Medical History Lipoma ?D17.9 - Benign lipomatous neoplasm, unspecified (ICD-10) Normal cardiac stress test (03/16/19) History of cocaine abuse ?F14.11 - Cocaine abuse, in remission (ICD-10) History of acute pancreatitis (08/26/22) ?Z87.19 - Personal history of other diseases of the digestive system (ICD-10) Family History Mother Stroke, Onset Age: 20 Maternal Grandmother Myocardial infarction, Onset Age: 60 Diabetes Social History Narrative: He lives in [place] with his and 4 daughters. 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 He does not smoke. Currently drinking about 10 beers a day. History of problems with alcohol with a 6 month period of abstinence in the past. No recreational drug use. What is your current living situation?: I presently have a place to live Problems where you live: no known problems Problems where you live details: N/A In the past 12 months, utilities in danger of being shut off: no In past 12 months, lack of transportation kept you from medical appts, meetings, work, or getting things needed for daily living: no In the past 12 mos, have been you worried that your food would run out before you had money to buy more?: never true In the past 12 mos, the food you bought just didn't last and you didn't have money to buy more?: never true Highest level of school completed/degree received: high school graduate Smoking Status: Never smoker Do you use any of these nicotine containing products: None Second hand tobacco smoke exposure: No How often do you have a drink containing alcohol: 4 or more times a week Alcoh ol type: beer and hard liquor How many standard drinks containing alcohol do you have on a typical day: 3 or 4 How often do you have six or more drinks on one occasion: Less than monthly AUDIT-C Alcohol total score: 6 Non-prescribed substance use: denies use Caffeine: Yes How often does anyone, including family, friends and others, physically hurt you : never How often does anyone, including family, friends and others, insult or talk down to you: never How often does anyone, including family, friends and others, threaten you with harm: never How often does anyone, including family, friends and others, scream or curse at you: never service: No Exam Const: Vital Signs, click to edit/add: Vital Signs - 24 hr 01/29/25 22:18 01/30/25 00:44 Temperature 97.6 F Pulse Rate [Pulse Oximeter] 113 H 89 Respiratory Rate 18 18 Blood Pressure [Ri ght Upper Arm] 154/117 H 149/100 H Pulse Oximetry 98 96 Oxygen Delivery Me thod Room Air Room Air Documenting provider has reviewed patient's vital signs: yes Common normals: alert Other: Does appear mildly ill but is very friendly and cooperative. HENMT: Common normals: normocephalic and oropharynx normal Head and scalp: normocephalic Other: Mildly dry membranes, lips acyanotic. Eye: Common normals: conjunctivae normal General eye: normal appearance of both eyes Conjunctiva: conjunctiva(e) normal Neck & C-Spine: Common normals: full ROM and no lymphadenopathy General: normal visual inspection Chest: Common normals: inspection of chest normal Resp: Common normals: normal respiratory effort, no use of accessory muscles and clear to auscultation bilaterally Effort & inspection: able to speak in complete sentences Auscultation: clear to auscultation bilaterally Cardio: Common normals: regular rate, regular rhythm, S1 normal heart sound, S2 normal heart sound and no murmurs Rate: regular rate Rhythm: regular rhythm Heart sounds: S1 normal and S2 normal GI: Common normals: Normal to inspection, nondistended, normoactive bowel sounds present, soft to palpation and no masses Palpation: soft Other: Bowel sounds are normoactive throughout. No palpable tenderness. Liver is enlarged 2 cm below costal margin. No right upper quadrant tenderness the Back & Pelvis: Common normals: thoracic and lumbar spine normal to inspection Extremity: Common normals: normal to inspection and normal capillary refill General: normal exam except as noted Neuro: Common normals: moves all extremities Sensorium/orientation: alert Speech: speech normal Other: No tremors. Psych: Appearance: grossly normal Attitude: engaged Activity/motor behavior: appropriate eye contact Attention/concentration: attention grossly intact Memory/cognition: memory grossly intact Insight: insight good Judgement: judgment good Skin: Common normals: no rashes or lesions noted General skin exam: no rashes or lesions noted Course Course ED Course: 34-year-old male with vomiting, history of heavy alcohol use and prior pancreatitis. Concerned mainly for recurrent pancreatitis. Also concern for acute on chronic liver failure, bowel obstruction, gastritis, dehydration, electrolyte abnormality, alcohol withdrawal, amongst others. Will obtain typical GI labs including alcohol workup. Place peripheral IV, give 8 of Z ofran, 1 L of normal saline, Protonix and await labs. May require CT depending on lab findings. May require hospitalization as well. Will re-evaluate. Reevaluation(s) Time of Reevaluation #1: 02:10 Reevaluation #1: Patient feeling better after fluids and Zofran. 2 L of fluids no going. Patient counseled on lab findings. Needs to quit drinking alcohol completely due to alcoholic hepatitis. No signs of biliary obstruction. Hemoconcentrated with some mild dehydration otherwise. The fluids to help with this. Has not had any further vomiting since he was given the Zofran, is feeling better. Counseled to use omeprazole [id number] once daily for the next 2 weeks. Prescription for Zofran given. I recommended at from [facility] due to holiday, Friday, etc. but patient prefers to send this to local pharmacy, this is done per his request. Counseled on alcohol cessation. Alarm symptoms reviewed that would warrant ED re-evaluation. He verbalizes understanding and agreement. Vital Signs Vital signs: Initial Vital Signs Temperature 97.6 F 01/29/25 22:18 Temperature Source Temporal Artery Scan 01/29/25 22:18 Pulse Rate 113 H 01/29/25 22:18 Respiratory Rate 18 01/29/25 22:18 Blood Pressure 154/117 H 01/29/25 22:18 Blood Pressure Mean 129 H 01/29/25 22:18 Blood Pressure Position Sitting 01/29/25 22:18 Pulse Oximetry 98 01/29/25 22:18 Oxygen Delivery Method Room Air 01/29/25 22:18 Vital Signs Temperature 97.6 F 01/29/25 22:18 Pulse Rate 113 H 01/29/25 22:18 Respiratory Rate 18 01/29/25 22:18 Blood Pressure 154/117 H 01/29/25 22:18 Pulse Oximetry 98 01/29/25 22:18 Oxygen Delivery Method Room Air 01/29/25 22:18 Temperature 97.6 F 01/29/25 22:18 Pulse Rate 89 01/30/25 00:44 Respiratory Rate 18 01/30/25 00:44 Blood Pressure 149/100 H 01/30/25 00:44 Pulse Oximetry 96 01/30/25 00:44 Oxygen Delivery Method Room Air 01/30/25 00:44 Medications Administered Medications: Generic Name Dose Route Start Last Admin Trade Name Freq PRN Reason Stop Dose Admin Sodium Chloride 1,000 mls @ 1,000 mls/hr 01/30/25 00:23 01/30/25 01:30 0.9 % Sodium Chloride 1000 Ml IV 01/30/25 01:22 Infused .Q1H ROGELIO Infusion Lactated Ringer's 1,000 mls @ 1,000 mls/hr 01/30/25 01:34 01/30/25 01:51 Lactated Ringers 1000 Ml IV 01/30/25 02:33 1,000 mls/hr .Q1H ONE Administration Ondansetron HCl 8 mg 01/30/25 00:22 01/30/25 00:37 Ondansetron 2 Mg/Ml Inj IVP 01/30/25 00:23 8 mg ONCE ONE Administration Pantoprazole Sodium 40 mg 01/30/25 00:36 01/30/25 00:41 Pantoprazole Sodium 40 Mg Inj IVP 01/30/25 00:37 40 mg ONCE ONE Administration Medical Decision Making Lab Data Lab results reviewed: Yes I reviewed the patient's lab results Lab results narrative: hemo concentrated and mildly dehydrated, not unexpected. No signs of severe pancreatitis. Does have alcoholic hepatitis, slightly worse than previous values but no signs of elevated bilirubin to suggest obstruction. Labs: Lab Results 01/30/25 Range/Units 00:22 WBC 10.80 (4.50-11.00) K/uL RBC 5.67 (4.30-5.90) m/uL Hgb 18.9 H (13.5-17.5) gm/dL Hct 51.3 (37.0-53.0) % MCV 91 (80-100) fL MCH 33 (26-34) pg MCHC 37 H (32-36) gm/dL RDW Coeff of Ok 11.6 (11.5-15.5) % Plt Count 298 (140-440) K/uL Neut % (Auto) 74.9 H (42.0-72.0) % Lymph % (Auto) 16.4 L (20-44) % [place] % (Auto) 7.7 (0.0-11.0) % Eos % (Auto) 0.4 (0.0-7.0) % Baso % (Auto) 0.3 (0.0-3.0) % Neut # (Auto) 8.10 H (1.7-7.0) K/uL Lymph # (Auto) 1.80 (0.90-2.90) K/uL [place] # (Auto) 0.80 (0.00-0.90) K/UL Eos # (Auto) 0.04 (0.00-0.50) K/uL Baso # (Auto) 0.03 (0.00-0.30) K/uL Abs Immat Gran (auto) 0.03 (0.00-0.30) K/uL Imm/Tot Granulo (auto) 0.3 % Sodium 136 (135-149) mmol/L Potassium 4.3 (3.6-5.1) mmol/L Chloride 98 (96-114) mmol/L Carbon Dioxide 22 (20-32) mmol/L Anion Gap 16 H (7-15) mEq/L BUN 9 (5-24) mg/dL Creatinine 0.7 (0.5-1.5) mg/dL Estimated GFR 122 ml/min Glucose 140 H (60-115) mg/dL Lactate 0.8 (0.5-1.9) mmol/L Calcium 9.7 (8.4-10.6) mg/dL Total Bilirubin 1.1 (0.1-1.5) mg/dL AST 113 H (12-35) U/L ALT 118 H (4-50) U/L Alkaline Phosphatase 110 (40-150) U/L C-Reactive Protein < 0.5 L (0.5-1.0) mg/dL Total Protein 10.4 H (6.0-8.3) g/dL Albumin 5.3 H (3.3-5.0) g/dL Lipase 136 (23-300) U/L Ethyl Alcohol 0.02 (0.01-0.03) % Discharge Plan Discharge Clinical Impression: Alcoholic hepatitis, Gastroenteritis Patient Disposition: Home, Self-Care Condition: Improved Instructions: Gastroenteritis (DC) Additional Instructions: As we discussed, thankfully you do not have any signs of pancreatitis today. You do have some inflammation in your stomach from your alcohol use and there is certainly signs of chronic inflammation in your liver from drinking too much alcohol. Based on your blood tests, you need to quit drinking alcohol completely, it is damaging your liver. I would like for you to start taking omeprazole, and [id number] stomach acid medicine once daily 30 minutes prior to a meal for the next 2 weeks. This will help the stomach you. I have also given her prescription for Zofran, a common anti nausea medication. You can take 1 pill up to every 6 hours to help with the nausea and vomiting. Symptoms should start to improve in a couple of days. It is very important that you stop drinking alcohol. If you start vomiting blood, have bloody stools, high fever or severe pain, please return to the emergency department. Kristen comentamos, afortunadamente hoy no presenta robb?n signo de pancreatitis. S? tiene algo de inflamaci?n en el est?yasmine debido al consumo de alcohol, y hay saumya signos de inflamaci?n cr?tor en el h?gado por natividad bebido demasiado. Seg?n los an?lisis de jhonny, debe dejar de beber alcohol por completo, ya que le est? da?ando el h?gado. Me gustar?a que comenzara a arvind omeprazol, un medicamento de venta ayla para la acidez estomacal, natanael vez al d?a, 30 minutos antes de natanael comida, barnden las pr?ximas dos semanas. [place] le ayudar? con el est?yasmine. Tambi?n le he recetado Zofran, un medicamento com?n contra las n?useas. Puede arvind natanael pastilla cada seis horas para aliviar las n?useas y los v?mitos. Los s?ntomas deber?an empezar a mejorar en un par de d?as. Es muy importante que deje de beber alcohol. Si comienza a vomitar jhonny, presenta heces con jhonny, fiebre ángel o dolor intenso, por favor, regrese a la junior de emergencias. Activity Level: Activity as Tolerated Discharge Diet: Other Diet Detail: No alcohol. You need to stop drinking alcohol completely. Prescriptions: New ondansetron 4 mg tablet,disintegrating 4 mg PO Q6H PRN (Reason: nausea and vomiting) Qty: 10 0RF Follow Up/Referrals: Provider,Not a Local [Primary Care Provider, Family Practice] Stand Alone Forms: [facility] Inst[facility]
[2025-01-30] MEDS: ONDANSETRON 2 MG/ML inj 8 MG IVP (00:37)
[2025-01-30] MEDS: PANTOPRAZOLE SODIUM 40 MG INJ IVP (00:41)
[2025-01-30 00:44] VITALS: BP 149/100; PULSE 89; RESP 18; O2SAT 96
[2025-01-30 00:46] LABS: Albumin* 5.3 g/dL (3.3-5.0); Chloride* 98 mmol/L (96-114); Sodium* 136 mmol/L (135-149)
[2025-01-30 00:47] LABS: Potassium* 4.3 mmol/L (3.6-5.1)
[2025-01-30 00:49] LABS: Blood Urea Nitrogen* 9 mg/dL (5-24)
[2025-01-30 00:50] LABS: Alanine Aminotransferase* 118 U/L (4-50); Alkaline Phosphatase* 110 U/L (40-150); Anion Gap 16 mEq/L (7-15); Aspartate Amino Transferase* 113 U/L (12-35); Bilirubin Total* 1.1 mg/dL (0.1-1.5); Calcium* 9.7 mg/dL (8.4-10.6); Carbon Dioxide* 22 mmol/L (20-32); Creatinine* 0.7 mg/dL (0.5-1.5); Estimated Glomerular Filt Rate 122 ml/min; Ethanol* 0.02 % (0.01-0.03); Glucose* 140 mg/dL (60-115); Total Protein* 10.4 g/dL (6.0-8.3)
--- OUTSIDE RECORDS SUMMARY | 2025-01-30 01:39 | XMS_ITS | Clinical Summary ---
Author Organization [facility] Address [address] [place] [id number] Care Team Providers Care Diesel Technician Name Role Phone Pcp, No Primary Care Provider Unavailabl e Allergies No known active allergies Medications No known medications Active Problems No known active problems Social History Tobacco UseTypesPacks/DayYears UsedDateSmoking Tobacco: NeverSmokeless Tobacco: Never Tobacco Cessation:Counseling Given: Yes Alcohol UseStandard Drinks/WeekCommentsNo0 (1 standard drink = 0.6 oz pure alcohol)Sex and Gender InformationValueDate RecordedSex Assigned at BirthNot on fileLegal DhjVzsu0502/24/2012 7:43 AM CSTGender IdentityNot on fileSexual OrientationNot on file Last Filed Vital Signs Vital SignReadingTime TakenCommentsBlood Rxkkrehn198/7305/10/2016 4:19 PM CDT Nyaxy514905/10/2016 4:19 PM SDKLayerhzugis05.9 ??C (98.5 ??F)05/10/2016 4:19 PM CDTRespiratory Rate--Oxygen Blvpienamn60%05/10/2016 4:19 PM CDTInhaled Oxygen Concentration--Lcnsbw38.1 kg (139 lb 1.6 oz)05/10/2016 4:19 PM DPOCwewdl987 cm (5' 6.14)05/10/2016 4:19 PM CDTBody Mass Index22.36005/10/2016 4:19 PM CDT Plan of Treatment Health MaintenanceDue DateLast DoneCommentsTetanus udvyyjq3412/03/1999Depression screening for age 12+2000HIV for age 15-6512/03/2003Hepatitis [...]
[2025-01-30] MEDS: LACTATED RINGERS 1000 ML 1,000 ML IV (01:51)
[2025-01-30 02:38] VITALS: BP 149/86; PULSE 100; RESP 18; O2SAT 100
== END 2025-01-30 02:39 | disposition home or self-care (01) ==
PROVIDERS: Emergency Provider Family Medicine
DX: K70.10 Alcoholic hepatitis without ascites (principal); K52.9 Noninfective gastroenteritis and colitis, unspecified; F10.10 Alcohol abuse, uncomplicated; Z87.19 Personal history of other diseases of the digestive system; Y90.9 Presence of alcohol in blood, level not specified
CPT/HCPCS: 36415; 80053; 82077; 83605; 83690; 85025; 86140; 96361; 96374; 96375; 99284; 99285; J2405; J2470; J7030; J7120